=== PATIENT | female | born 1985 | race Caucasian/White ===

== ENCOUNTER 2022-01-07 09:39 | Outpatient (CLI) | payer OTHER, SELFPAY | END 2022-01-07 09:40 | disposition home or self-care (01) | LOC: NFLDREF 09:39 | PROVIDERS: Visit Provider Pediatrics | DX: J02.9 Acute pharyngitis, unspecified (principal) | CPT/HCPCS: 87070 ==

== ENCOUNTER 2023-03-11 09:11 | Outpatient (CLI) | payer OTHER, SELFPAY | END 2023-03-11 09:12 | disposition home or self-care (01) | PROVIDERS: PCP Family Medicine; Visit Provider Family Medicine | DX: Z00.00 Encounter for general adult medical examination without abnormal findings (principal); R53.83 Other fatigue | CPT/HCPCS: 80053; 80061; 82306; 82728; 84443 ==